=== PATIENT | male | born 1965 | race Caucasian/White ===

== ENCOUNTER 2016-08-30 17:16 | Emergency (ER) | payer OTHER, BC ==
[~2016-08-30] VITALS: Ht 172.7 cm; Wt 90.9 kg
[2016-08-30 17:22] VITALS: BP 163/93; PULSE 83; TEMP 97.7
[2016-08-30] MEDS ORDERED: NORCO 325 MG-51 TAB PO (18:41)
== END 2016-08-30 19:20 | disposition home or self-care (01) ==
LOC: COL.ER 17:16
DX: S62.396A Other fracture of fifth metacarpal bone, right hand, initial encounter for closed fracture (principal); I10 Essential (primary) hypertension; V49.60XA Unspecified car occupant injured in collision with unspecified motor vehicles in traffic accident, initial encounter; Y92.410 Unspecified street and highway as the place of occurrence of the external cause; S60.512A Abrasion of left hand, initial encounter; Z23 Encounter for immunization

== ENCOUNTER 2016-11-07 14:01 | Day surgery (SDC) | payer BC ==
[~2016-11-07] VITALS: Ht 172.7 cm; Wt 91.8 kg
[~2016-11-07 14:01] MED LIST: NORCO 325 MG-51 TAB PO
[2016-11-07 14:24] VITALS: BP 130/81; PULSE 76; TEMP 98.3
[2016-11-07] MEDS ORDERED: LIPITOR20 MG PO (14:37)
[2016-11-07] MEDS ORDERED: BYSTOLIC20 MG PO (14:37)
[2016-11-07] MEDS ORDERED: NORVASC 10MG10 MG PO (14:37)
[2016-11-07] MEDS ORDERED: ACCUPRIL40MGTAB PO (14:37)
[2016-11-07 15:57] VITALS: BP 112/69; PULSE 78; TEMP 97.2
[2016-11-07 16:12] VITALS: BP 107/64; PULSE 73
[2016-11-07 16:27] VITALS: BP 114/82; PULSE 74
[2016-11-07 16:42] VITALS: BP 129/79; PULSE 76
== END 2016-11-07 17:05 | disposition home or self-care (01) ==
LOC: SDCO 14:01
DX: Z12.11 Encounter for screening for malignant neoplasm of colon (principal); D12.3 Benign neoplasm of transverse colon; D12.8 Benign neoplasm of rectum; K63.5 Polyp of colon; I10 Essential (primary) hypertension; E78.5 Hyperlipidemia, unspecified; F17.210 Nicotine dependence, cigarettes, uncomplicated
CPT/HCPCS: OP; J2250; J3010; J7030

== ENCOUNTER 2018-12-06 05:25 | Day surgery (SDC) | payer BC ==
[~2018-12-06] VITALS: Ht 172.7 cm; Wt 90.0 kg
[~2018-12-06 05:25] MED LIST changes: +ACCUPRIL40MGTAB PO; +BYSTOLIC20 MG PO; +LIPITOR20 MG PO; +NORVASC 10MG10 MG PO
[2018-12-06 06:03] VITALS: BP 143/80; PULSE 84; TEMP 98
[2018-12-06 09:55] VITALS: BP 110/61; PULSE 61; TEMP 98.5
[2018-12-06 10:10] VITALS: BP 111/62; PULSE 63
[2018-12-06] MEDS ORDERED: ROXICODONE 55 MG/TAB PO (10:17)
[2018-12-06 10:25] VITALS: BP 109/59; PULSE 57
[2018-12-06 10:35] VITALS: BP 112/53; PULSE 64
== END 2018-12-06 11:55 | disposition home or self-care (01) ==
LOC: SDCO 05:25
DX: K40.20 Bilateral inguinal hernia, without obstruction or gangrene, not specified as recurrent (principal); D17.6 Benign lipomatous neoplasm of spermatic cord; E78.00 Pure hypercholesterolemia, unspecified; I10 Essential (primary) hypertension; F17.210 Nicotine dependence, cigarettes, uncomplicated; J44.9 Chronic obstructive pulmonary disease, unspecified
CPT/HCPCS: C1781; J1885; J2405; J2704; J3010; J7120

== ENCOUNTER → 2019-12-03 | Outpatient (CLI) | payer BC ==
[~2019-12-03] MED LIST changes: +ROXICODONE 55 MG/TAB PO
== END ==
LOC: COL.RAD 13:59
DX: N50.89 Other specified disorders of the male genital organs (principal)

== ENCOUNTER 2021-06-25 22:47 | Inpatient (IN) | payer BC ==
[~2021-06-25] VITALS: Ht 172.7 cm; Wt 94.3 kg
[2021-06-25 23:35] LABS: ARTERIAL BLD GAS TCO2 CT 26.7; ARTERIAL BLOOD GAS BASE EXCESS 0.4 (-2-2); ARTERIAL BLOOD GAS HCO3 25.4 meq/L (22-26); ARTERIAL BLOOD GAS PCO2 41.9 mmHg (35-45); ARTERIAL BLOOD GAS PO2 71.6 mmHg (80-100)
[2021-06-25 23:37] LABS: BASO # 0.1 K/mm3 (0.0-0.2); BASO % 0.8 % (0.0-2.0); EOS # 0.1 K/mm3 (0.0-0.7); EOS % 0.3 % (0.0-4.0); GRAN # 11.9 K/mm3 (1.4-6.5); GRAN % 82.6 % (42.2-75.2); HEMOGLOBIN 16.1 g/dl (13.5-18.0); LYMPH # 1.3 K/mm3 (1.2-3.4); LYMPH % 8.9 % (20.0-51.0); MEAN CELL VOLUME 87 fl (80.0-100.0); MEAN CORPUSCULAR HEMOGLOBIN 30 pg (27-31); MEAN CORPUSCULAR HGB CONC 35 g/dl (33.0-37.0); MEAN PLATELET VOLUME 8.5 fl (7.4-10.4); MONO % 7.1 % (1.7-9.3); PLATELET COUNT 310 K/mm3 (130-400); RED BLOOD COUNT 5.32 M/mm3 (4.20-5.60); REDCELL DISTRIBUTION WIDTH-CV 12.3 % (11.5-14.5)
[2021-06-25 23:50] LABS: ALBUMIN 4.3 gm/dL (3.5-5.0); C-REACTIVE PROTEIN 1.06 mg/dL (0.00-0.50); CALCIUM 9.6 mg/dL (8.4-10.2); CREATININE, serum 0.78 mg/dL (0.72-1.25); POTASSIUM 3.6 mmol/L (3.5-4.5); TOTAL PROTEIN 8.1 gm/dL (6.2-8.1)
[2021-06-26] VITALS (7 sets, daily range): BP systolic 91–148; BP diastolic 43–72; PULSE 72–103; TEMP 97.3–98.3
[2021-06-26 00:06] LABS: TROPONIN-I 0.136 ng/mL (0.00-0.033)
--- NOTE | 2021-06-26 02:26 | NUR ---
PT ARRIVES VIA W/C FROM ED. IS ALERT AND ORIENTED X4. HAS OXYGEN ON AT 8L/OXYMASK.
--- NOTE | 2021-06-26 02:55 | NUR ---
REPORTED TROPONIN 0.[address] TILLMAN. ORDER FOR TELEMETRY.
--- NOTE | 2021-06-26 05:00 | NUR ---
Pt resting, oxymask at 8L continues.
[2021-06-26 06:26] LABS: HEMATOCRIT 44.2 % (42.0-52.0); HEMOGLOBIN 15.4 g/dl (13.5-18.0); MEAN CELL VOLUME 86 fl (80.0-100.0); MEAN CORPUSCULAR HEMOGLOBIN 30 pg (27-31); MEAN CORPUSCULAR HGB CONC 35 g/dl (33.0-37.0); PLATELET COUNT 295 K/mm3 (130-400); RED BLOOD COUNT 5.14 M/mm3 (4.20-5.60); REDCELL DISTRIBUTION WIDTH-CV 12.2 % (11.5-14.5)
[2021-06-26 06:32] LABS: CHOLESTEROL RISK RATIO 5.7
[2021-06-26 06:41] LABS: TROPONIN-I 0.086 ng/mL (0.00-0.033)
--- NOTE | 2021-06-26 06:48 | NUR ---
Dr Souza notified of Troponin 0.086 this AM. No new orders.
--- NOTE | 2021-06-26 06:54 | NUR ---
awake and cardipulmonary in working with patient, bedside shift report received from TIFF Reyez
--- NOTE | 2021-06-26 08:12 | NUR ---
resting in bed with lights off when entered the room, he states he is doing OK and not having any pain, declines breakfast stating he doesn't usually eat much breakfast, O2 on at 4L/mask, states was jittery after receiving steroid breathing treatment and understands that is normal, denies needs at this time
--- NOTE | 2021-06-26 09:30 | NUR ---
awake resting in bed, states ever since his breathing treatment earlier he doesn't feel like any oxygen is coming out of the mask, explained to him I believe they turned down the amount of oxygen he had been receiving and that is probably why, verbalizes understanding, O2 sat 91% on 4L/mask, full assessment completed, see interventions for further info, denies needs
--- NOTE | 2021-06-26 10:00 | NUR ---
ambulated in [place] with physical therapy
--- NOTE | 2021-06-26 10:23 | NUR ---
well service floor worker met with patient to discuss discharge plan. Patient reports that he lives at home with his Yas ([phone]) in [facility]. Patient reports that he is fully independent with his ADL's and does not utilize any medical DME to assist with mobility. Patient's PCP is Dr. Irizarry and he utilizes [facility] pharmacy for medication needs with no cost difficulty. Patient does not currently have O2 needs at home but has been on 2-4L of oxygen while here. Patient does not have a DPOA-HC established and is not interested in creating one at this time. Patient's mother is in room 354 currently and expresses that he would like to be discharged today as she is planning on going to a NH tomorrow and would like to be there to assist with the transistion. Information passed along to the physician staff. Discharge plan: Home with spouse.
--- NOTE | 2021-06-26 11:04 | NUR ---
to medical unit per to see his mother who is a patinet, has been offered to have a shower or hygiene with warm wipes and refuses,
--- NOTE | 2021-06-26 12:20 | NUR ---
given mag citrate 1 bottle per his request for need to have bowel movement
--- NOTE | 2021-06-26 12:24 | NUR ---
O2 sat on room air while sitting on side of bed was 90%, O2 on at 1L/NC, cardiopulmonary notified of need for exercise oximetry
--- NOTE | 2021-06-26 12:53 | NUR ---
ambulating in [place] with cardiopulmonary
--- NOTE | 2021-06-26 13:20 | NUR ---
resting in bed on right side with O2 on, has been unable to have bowel movement at this time
--- NOTE | 2021-06-26 14:45 | NUR ---
up and in bathroom and states is having a bowel movement
--- NOTE | 2021-06-26 15:30 | NUR ---
up and about in room independently, states feels better after having having bowel movement, at bedside
--- NOTE | 2021-06-26 16:32 | NUR ---
Walked with the patient down to the medical floor to see his mother. Hospitalist spoke with the patient on what his mother has verbalized and he reports that he is supportive if she decides to go comfort care.
--- NOTE | 2021-06-26 17:18 | NUR ---
continues up and about in room independently and having bowel movements, asked about going home and informed him he needs to stay another night due to low oxygen levels, verbalizes understanding and at bedside
--- NOTE | 2021-06-26 18:49 | NUR ---
bedside shift report given to TIFF Reyez
--- NOTE | 2021-06-26 20:20 | NUR ---
PT RESTLESS, REPORTS NOT BEING ABLE TO BREATHE, VSS, OXYGEN @5L/OXYMASK WITH SA02=92%. NOTIFIED ROSA MORALES OF PTS ANXIETY, NEW MEDS ORDERED.
--- NOTE | 2021-06-26 20:30 | NUR ---
MEDICATED WITH ATIVAN 1MG PO AT THIS TIME. REPORTS THICK SPUTUM.
--- NOTE | 2021-06-26 21:40 | NUR ---
PT ACCIDENTALLY PULLED INT OUT, RESTARTED #22 INSYTE TO RFA ON FIRST ATTEMPT.
--- NOTE | 2021-06-27 03:04 | NUR ---
PT RESTING IN BED, OXYGEN OFF SA02=85%. PLACED BACK ON OXYMASK AT 4L, SA02=90%.
[2021-06-27 04:09] VITALS: BP 111/52; PULSE 82; TEMP 97.5
[2021-06-27 06:53] LABS: HEMATOCRIT 41.3 % (42.0-52.0); HEMOGLOBIN 14.3 g/dl (13.5-18.0); MEAN CELL VOLUME 87 fl (80.0-100.0); MEAN CORPUSCULAR HEMOGLOBIN 30 pg (27-31); MEAN CORPUSCULAR HGB CONC 35 g/dl (33.0-37.0); MEAN PLATELET VOLUME 9.2 fl (7.4-10.4); PLATELET COUNT 320 K/mm3 (130-400); RED BLOOD COUNT 4.73 M/mm3 (4.20-5.60); REDCELL DISTRIBUTION WIDTH-CV 12.2 % (11.5-14.5)
[2021-06-27 07:04] LABS: CALCIUM 8.9 mg/dL (8.4-10.2); CREATININE, serum 0.74 mg/dL (0.72-1.25); POTASSIUM 4.1 mmol/L (3.5-4.5)
[2021-06-27 07:08] VITALS: BP 129/68; PULSE 77; TEMP 97.4
[2021-06-27 07:46] LABS: BAND 4 % (0-10); LYMPHOCYTE 4 % (20.0-51.0); NEUTROPHILS 90 % (42.0-75.2)
[2021-06-27 07:47] LABS: PLATELET ESTIMATE NORMAL (NORMAL)
--- NOTE | 2021-06-27 08:15 | NUR ---
Patient sitting up at edge of bed. Breakfast ordered. RT just finished treatment. Am medication given & assessment completed. Patient denies pain. Vss on O2, tele on. Will monitor.
--- NOTE | 2021-06-27 09:26 | NUR ---
Initial visit; Patient thanked Scratcher Tender for looking in on him and offering God's blessings.
[2021-06-27 11:31] VITALS: BP 101/53; PULSE 73; TEMP 97.5
--- NOTE | 2021-06-27 12:44 | NUR ---
Patient sitting up at the edge of the bed. Eating lunch without O2 on, O2 saturations at 82%. Patient placed pack on Nasal cannula and O2 saturations back to greater than 90% Hospitalsit team rounded & orders obtained.
--- NOTE | 2021-06-27 13:21 | NUR ---
Patient placed back on oxymask. O2 sats better with Oxymask vs nasal cannula. He is going to rest.
--- NOTE | 2021-06-27 14:48 | NUR ---
Sluice Tender followed up with patient on need for home oxygen. Patient states he would like to use [facility] at time of discharge.
--- NOTE | 2021-06-27 15:44 | NUR ---
Patient sitting at the edge of the bed. His at his side. Patient feeling restless, frustrated, a little anxious. Prn ativan given. Patietn also concerned it could be his lack of nicoderm, requsting Prn patch to be given.
[2021-06-27 16:00] VITALS: BP 129/73; PULSE 67; TEMP 97.5
--- NOTE | 2021-06-27 17:50 | NUR ---
Patient reports feeling slightly better. HIs remains at bedside. dinner ordered.
[2021-06-27 19:11] VITALS: BP 117/58; PULSE 71; TEMP 97.6
--- NOTE | 2021-06-27 19:25 | NUR ---
Patient reports indigestion/discomfort after dinner. Juli Pandya made aware & orders obtained. Bedside report to Aissatou.
[2021-06-27 23:20] VITALS: BP 120/55; PULSE 81; TEMP 97.7
--- NOTE | 2021-06-28 03:07 | NUR ---
PATIENT DOING WELL TONIGHT. ALERT AND ORIENTED. SOME ANXIETY NOTED AT BEDTIME, AND PRN ATIVAN 1 MG GIVEN. PATIENT NOW RESTING COMFORTABLY IN BED.
[2021-06-28 03:26] VITALS: BP 115/51; PULSE 78
--- NOTE | 2021-06-28 06:47 | NUR ---
awake sitting up on side of bed, bedside shift report received from TIFF Vides
[2021-06-28 07:22] VITALS: BP 136/63; PULSE 75; TEMP 97.7
--- NOTE | 2021-06-28 07:36 | NUR ---
sitting up looking at phone, full assessment completed, see interventions for further info, denies pain or needs at this time, declines breakfast
[2021-06-28 08:28] LABS: HEMATOCRIT 45.2 % (42.0-52.0); HEMOGLOBIN 15.4 g/dl (13.5-18.0); MEAN CELL VOLUME 88 fl (80.0-100.0); MEAN CORPUSCULAR HEMOGLOBIN 30 pg (27-31); MEAN CORPUSCULAR HGB CONC 34 g/dl (33.0-37.0); PLATELET COUNT 346 K/mm3 (130-400); RED BLOOD COUNT 5.16 M/mm3 (4.20-5.60); REDCELL DISTRIBUTION WIDTH-CV 12.2 % (11.5-14.5)
--- NOTE | 2021-06-28 08:42 | NUR ---
CARMEN Gallardo notified of elevated WBC
[2021-06-28 08:44] LABS: BAND 1 % (0-10); NEUTROPHILS 86 % (42.0-75.2)
[2021-06-28 08:45] LABS: LYMPHOCYTE 9 % (20.0-51.0); PLATELET ESTIMATE NORMAL (NORMAL)
[2021-06-28 08:46] LABS: CALCIUM 9.2 mg/dL (8.4-10.2); CREATININE, serum 0.77 mg/dL (0.72-1.25); POTASSIUM 4.4 mmol/L (3.5-4.5)
[2021-06-28] MEDS ORDERED: ASPIRIN 81M81 MG/TA2 PO (09:07)
--- NOTE | 2021-06-28 09:14 | NUR ---
Dr Stout and care team in to see patient
--- NOTE | 2021-06-28 09:55 | NUR ---
sitting on side of bed, RSV panel obtained and to the lab, informed him about being seen by pulmonology and then possibly going home this afternoon
--- NOTE | 2021-06-28 10:33 | NUR ---
Dr Kiser in to see patient
[2021-06-28] MEDS ORDERED: TRELEGY ELLIPT1 EACH IH (10:49)
[2021-06-28] MEDS ORDERED: PREDNISONE20 MG PO (10:52)
[2021-06-28] MEDS ORDERED: OXYGEN NASAL.CANN ×2 (10:54→11:07)
[2021-06-28] MEDS ORDERED: PROAIR HFA0.09 MG/AC IH (10:54)
--- NOTE | 2021-06-28 11:12 | NUR ---
sitting on side of bed, states he feels a little jittery in his head, offered ativan but declines that at this time
--- NOTE | 2021-06-28 11:18 | NUR ---
Flag Decorator collaborated with Hospitalist and patient is ready for discharge today. MEJIA faxed referral and order for oxygen to [facility]. Kane with [facility] advised they will deliver a tank of oxygen to the hospital then the rest of his equipment to the home. Kane advised patient will likely have an out of pocket expense of approximately $400-$500 per month and payment would be due today. MEJIA updated patient who verbalized understanding. Patient to discharge home today with his .
[2021-06-28 11:39] VITALS: BP 116/65; PULSE 78; TEMP 97.7
--- NOTE | 2021-06-28 12:56 | NUR ---
up in chair visiting with his , waiting for oxygen to go home
--- NOTE | 2021-06-28 13:15 | NUR ---
discharge instructions given to patient and his , verbalizes understanding of instructions and use of oxygen as instructed by [employer] rep
--- NOTE | 2021-06-28 13:22 | NUR ---
discharged per WC
== END 2021-06-28 13:22 | disposition home or self-care (01) | DRG 189 ==
LOC: COL.ER 22:47 → SURG 06-26 01:08
PROVIDERS: Nurse Practitioner; Physician Assistant; ADMIT Student in an Organized Health Care Education/Training Program
DX: J96.01 Acute respiratory failure with hypoxia (principal); J44.1 Chronic obstructive pulmonary disease with (acute) exacerbation; R65.10 Systemic inflammatory response syndrome (SIRS) of non-infectious origin without acute organ dysfunction; I10 Essential (primary) hypertension; E78.5 Hyperlipidemia, unspecified; F17.210 Nicotine dependence, cigarettes, uncomplicated; K59.00 Constipation, unspecified; B97.29 Other coronavirus as the cause of diseases classified elsewhere; D72.829 Elevated white blood cell count, unspecified; T38.0X5A Adverse effect of glucocorticoids and synthetic analogues, initial encounter
CPT/HCPCS: 99223-AI; 99232-AI; 99239; J1100; J1650; J2920; Q9967

== ENCOUNTER → 2022-04-07 | Outpatient (CLI) | payer BC ==
[~2022-04-07] MED LIST changes: +ASPIRIN 81M81 MG/TA2 PO; +OXYGEN NASAL.CANN; +PREDNISONE20 MG PO; +PROAIR HFA0.09 MG/AC IH; +TRELEGY ELLIPT1 EACH IH
== END ==
LOC: COL.RAD 07:37
DX: R14.0 Abdominal distension (gaseous) (principal); K59.00 Constipation, unspecified; R19.8 Other specified symptoms and signs involving the digestive system and abdomen; R10.13 Epigastric pain
CPT/HCPCS: A9541